=== PATIENT | female | born 1980 | race Caucasian/White ===

== ENCOUNTER 2020-06-26 08:51 | Outpatient (CLI) | payer BC ==
--- NOTE | 2020-06-26 09:30 | RAD ---
2 VIEWS CHEST: Date: 06/26/2020 COMPARISON: 11/03/2015. HISTORY: Dyspnea. FINDINGS: Two views of the chest show normal sized cardiomediastinal silhouette. There is no evidence of consol idation, mass, or pleural effusion. The bones are unremarkable. IMPRESSION: No evidence of acute cardiopulmonary disease. POS: [facility]
== END 2020-06-26 08:52 | disposition home or self-care (01) ==
LOC: BICRAD 08:51
PROVIDERS: ATTEND Internal Medicine Critical Care Medicine
DX: R06.00 Dyspnea, unspecified (principal)
CPT/HCPCS: 71046